=== PATIENT | male | born 1945 | race Caucasian/White ===

== ENCOUNTER 2022-04-18 20:47 | Emergency (ER) | payer MEDICARE, OTHER, SELFPAY ==
[2022-04-18 20:48] VITALS: BP 173/89; PULSE 93; RESP 19; TEMP 36.6; O2SAT 94; BMI 36.8
--- NOTE | 2022-04-18 22:06 | CT_ITS ---
STUDY: CT BRAIN WITHOUT CONTRAST REASON FOR EXAM: Male, 76 years old. Syncope. Fall. Trauma to the head and nose. RADIATION DOSAGE (If Supplied By Facility): CTDIvol = ( 44.99 ) mGy, DLP = ( 829.85 ) mGycm TECHNIQUE: Transaxial CT imaging of the brain was performed without administration of intravenous contrast material. Individualized dose optimization techniques were used for this CT. COMPARISON: No relevant priors. FINDINGS: Normal soft tissue structures. Normal calvarium. 1 Normal white matter tracts of the cerebral hemispheres. Normal basal ganglia and thalami. Normal brainstem. Normal cerebellum. There is no intracranial hemorrhage. There are no findings of an acute ischemic infarction. Normal visualized paranasal sinuses. CT/Brain/Head without Contrast IMPRESSION: No acute intracranial or calvarial abnormality. Electronically Signed: Sammy Houston DO at 22:46 EST ,
--- NOTE | 2022-04-18 22:07 | EKG12_ITS ---
Test Reason : SYNCOPE Blood Pressure : / mmHG Vent. Rate : 094 BPM Atrial Rate : 094 BPM P-R Int : 214 ms QRS Dur : 116 ms QT Int : 364 ms P-R-T Axes : 090 -37 107 degrees QTc Int : 455 ms Sinus rhythm with 1st degree A-V block Left axis deviation Left ventricular hypertrophy with QRS widening ( R in aVL , Dion product ) ST & T wave abnormality, consider lateral ischemia Poor R wave progression Abnormal ECG Confirmed by JHONNY NIELSEN, JESSIE ([id number]), editorial cartoonist DULCE GILBERT ([id number]) on 04/22/2022 11:17:46 AM Referred By: JASON/RAMBO Confirmed By:JESSIE BARRY MD
--- NOTE | 2022-04-18 22:08 | EX.ED.DYSGE1 ---
HPI History of Present Illness Chief Complaint: Syncope Informant: patient Narrative Narrative: Patient had a possible syncopal episode. He was up here visiting from [place]. They drove up from the [place] [facility] [place] [facility]. He did have some pizza and finger foods but nothing that he thought was significantly out of the ordinary. He did not drink any alcohol. He did take his Lasix later in the day than normal because he drove up here. He had to go to the restroom. He evidently passed out in the bathroom. He states he was sitting down when he was urinating. He did not move his bowels. He stated he is not sure if he passed out when he was urinating or when he was getting up to leave. 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 He states he is at risk for falling because of this but he has not passed out before. But he is not sure if he fell getting up hit his head and passed out or if he passed out and then fell and hit his head. There is no one available they can give us these details. He does state that he feels completely normal now. Patient does have complex medical history including diabetes heart disease and prior bypass surgery in 2018. He is taking his medications. This does include 40 mg a day of Lasix. He is on baby aspirin but no other anticoagulation. [facility] Medical History Asbestos exposure Diabetes type 2, controlled Heart failure Hypertension NSTEMI (non-ST elevated myocardial infarction) Sleep apnea Allergy/AdvReac Type Severity Reaction Status Date / Time No Known Allergies Allergy Verified 04/18/22 20:56 Surgical History H/O heart bypass surgery Social History Smoking Status: Former smoker ROS ROS ED Constitutional Constitutional ED: Denies chills, fever(s), subjective or sweats Eyes Eyes: Denies blurry vision, change in vision or diplopia ENT ENT ED: Reports other Details: Facial abrasions Cardiovascular Cardiovascular: Denies chest pain or palpitations Respiratory/Chest Respiratory/Chest: Denies cough or dyspnea Gastrointestinal Gastrointestinal: Denies abdominal pain, nausea or vomiting Genitourinary Genitourinary ED: Denies dysuria or urinary frequency Musculoskeletal Musculoskeletal: Denies arthralgias, back pain, myalgias or neck pain Integumentary Reports Abrasions; Denies rash Neurologic Neurologic: Denies headache(s), paresthesias or weakness Endocrine Endocrinology: Denies polydipsia or polyuria Hematologic/Lymphatic Hematologic/Lymphatic: Denies easy bleeding or easy bruising Allergic/Immunologic Allergic/Immunologic ED: Denies urticaria EXAM Physical Exam Const Vital Signs: 04/18/22 20:48 04/18/22 20:48 Temperature 97.8 F Temperature Source Temporal Pulse Rate 93 Respiratory Rate 19 H Respiratory Effort Normal Respiratory Pattern Normal Blood Pressure 173/89 H Blood Pressure Mean 117 Pulse Ox 94 Oxygen Delivery Method Room Air Positive well nourished and well developed General Appearance ED: well developed and NAD HEENT HEENT Narrative: Patient has a slight tear/shallow laceration proximal left side of his nose. No bleeding. There is 2 abrasions on the left forehead. There is contusion on the right cheek. No apparent dental tenderness. No facial anesthesia. No sign of nasal bleeding or septal hematoma. Eyes Eyes Narrative: There is some bruising of the right lower lid. But the eyes themselves do not look involved. No subconjunctival hemorrhage. No pain with range of motion. No limitation of upward gaze. Neck no lymphadenopathy and supple General: Negative for tenderness Chest Wall inspection of chest normal and palpation of chest normal Chest Narrative: Well-healed sternotomy Resp normal respiratory effort and clear to auscultation bilaterally Cardio regular rate and regular rhythm GI normal to inspection, nondistended, normoactive bowel sounds GI Narrative: No bruit mass or tenderness. Auscultation: normoactive bowel sounds Palpation: soft; Negative for tender, guarding or mass Back/Spine no CVA tenderness Extremity Extremity Narrative: Patient has compression hose on. No deformity or tenderness. Neuro oriented x3 Neuro Narrative: Patient awake alert oriented x3. He told me stories going back to his [employer] days in the late 60s and early 70s. He is a good informant for the dates and times of his surgery. He knows his meds. No sign of confusion whatsoever. No numbness tingling weakness or discoordination. No abnormal speech or vision. Psych mental status grossly normal Skin Skin Narrative: Patient abrasions as above. MDM MDM MDM Narrative Medical decision making narrative: Blood work showed nonspecific elevation of white count at 12.6. He has anemia at 10. He states his level is normally a little lower than this.'s 10 is pretty good for him. He does have some mild elevated creatinine at 1.8. He states they know about this and this is chronic also. Glucose is 229. He states that is probably because he did not take some of his meds for diabetes today because of the events that happened. He also ate a little bit more food than normal. He is still asymptomatic. His states he is acting normally. They would like to go home. I think this is a reasonable option. It is still unclear if this was a syncopal event where he hit his head or if he got unsteady fell hit his head and lost consciousness. We did have recommend he follow-up with his primary physician. We agreed that the small laceration on the left side of his nose is quite small. It is about 1 cm long. It does not open. It does not need closure. Lab Data Attestation: I reviewed the patient's lab results. Labs: Laboratory Results - last 24 hr 04/18/22 04/18/22 20:35 20:35 WBC 12.6 H RBC 3.37 L Hgb 10.0 L Hct 33.6 L MCV 99.7 H MCH 29.7 MCHC 29.8 L RDW Std Deviation 50.4 H RDW Coeff of Bernardo 13.8 Plt Count 356 MPV 10.6 Immature Gran % (Auto) 0.400 Neut % (Auto) 63.6 Lymph % (Auto) 24.1 [place] % (Auto) 8.1 Eos % (Auto) 2.8 Baso % (Auto) 1.0 Absolute Neuts (auto) 8.0 H Absolute Lymphs (auto) 3.03 Nucleated RBC % 0 Sodium 144 Potassium 3.7 Chloride 111 H Carbon Dioxide 23.0 Anion Gap 10 BUN 38 H Creatinine 1.80 H Estim Creat Clear Calc 28.98 Est GFR (MDRD) Af Amer 48 L Est GFR (MDRD) Non-Af 39 L BUN/Creatinine Ratio 21.1 H Glucose 229 H Calcium 9.2 Radiography Diagnostic Testing: Clinical Impression(s) from Imaging Studies Brain CT 04/18/22 22:06 IMPRESSION: No acute intracranial or calvarial abnormality. Electronically Signed: Sammy Houston DO at 22:46 EST Reading Location ID and State: [employer] / [employer] Tel [phone], Service support , Cervical Spine CT 04/18/22 22:09 IMPRESSION: Degenerative changes of the cervical spine without acute fracture or subluxation. Note: MRI is more sensitive than CT in detecting cord injury, ligamentous injury and epidural hematoma. If there is continued clinical concern for any of these entities, MRI should be considered. Electronically Signed: Sammy Houston DO at 22:59 EST Reading Location ID and State: [facility] / [place] Tel [phone], Service support , Facial/Sinus 04/18/22 22:09 IMPRESSION: Normal unenhanced CT of the facial bones. Electronically Signed: Sammy Houston DO at 22:49 EST Reading Location ID and State: [facility] / [employer] Tel [phone], Service support , Chest X-Ray 04/18/22 22:32 IMPRESSION: 1. A probable left pleural effusion and atelectasis. 2. Evidence of prior CABG procedure. Electronically Signed: Sammy Houston DO at 23:00 EST Reading Location ID and State: [facility] / [place] Tel [phone], Service support , Chest x-ray does show a slight left effusion. He has no symptoms this. He states he had a fusion and he thinks he has had 1 ever since his bypass surgery about [address] of the face neck and head showed no acute process. EKG Initial EKG: Comments: EKG done for syncope read by me shows sinus rhythm with first-degree AV block and overall rate of 94. No ventricular ectopy is noted although there is a rare PVC on the monitor. No acute ST elevation or significant depression. AR interval is long. QRS duration is within normal limits and QTc is normal. I do not have prior to compare. Discharge Plan Triage Chief Complaint: Syncope ED Provider: Harish Gunn Dx/Rx/DC Orders Clinical Impression: Syncope, Anemia, Abrasion of face Instructions: ED Dizziness or Syncope ... [facility] Provider: [facility] Referrals: [facility] [Primary Care Provider] - 1 Week Disposition Disposition: Home, Self Care
--- NOTE | 2022-04-18 22:09 | CT_ITS ---
STUDY: CT FACIAL BONES WITHOUT CONTRAST REASON FOR EXAM: Male, 76 years old. Incompletely with fall. Trauma to the head and face. RADIATION DOSAGE (If Supplied By Facility): CTDIvol = ( 29.38 ) mGy, DLP = ( 591.53 ) mGycm TECHNIQUE: The patient was scanned in a multi detector CT scanner. Sagittal and coronal images were reconstructed. Individualized dose optimization techniques were used for this CT. COMPARISON: CT of the head, April 18, 2022. FINDINGS: Normal soft tissue structures. Normal orbital galdamez and orbital contents. Normal nasal bones and anterior nasal spine. Normal facial bones. There is no demonstrated fracture. Normal visualized paranasal sinuses. CT/Sinus/Facial Bone IMPRESSION: Normal unenhanced CT of the facial bones. Electronically Signed: Sammy Houston DO at 22:49 EST ,
--- NOTE | 2022-04-18 22:09 | CT_ITS ---
STUDY: CT CERVICAL SPINE WITHOUT CONTRAST REASON FOR EXAM: Male, 76 years old. Fall. Trauma to the head and face. RADIATION DOSAGE (If Supplied By Facility): CTDIvol = ( 22.42 ) mGy, DLP = ( 469.02 ) mGycm TECHNIQUE: High resolution transaxial imaging was performed without contrast material. Sagittal and coronal images were reconstructed. Individualized dose optimization techniques were used for this CT. COMPARISON: None FINDINGS: Normal craniovertebral junction. There are degenerative changes of the anterior atlantoaxial articulation. Normal odontoid process. Normal cervical lordosis. Normal vertebral bodies and posterior osseous elements. C2-3: Minimal endplate spondylosis with slight loss of disc height. Facet joint degenerative change.. Normal central canal and intervertebral neuroforamina. C3-4: Endplate spondylosis. Loss of disc height with mild bulging annulus. Facet and uncovertebral joint degenerative change. Mild stenosis of central canal and narrowing of the bilateral intervertebral neuroforamina. C4-5: Endplate spondylosis. Loss of disc height with bulging annulus. Facet and uncovertebral joint degenerative change. Normal central canal. Narrowing of the bilateral intervertebral neuroforamina. C5-6: Endplate spondylosis. Loss of disc height with bulging annulus. Facet and uncovertebral joint degenerative change. Marked stenosis of the central canal and severe narrowing of the bilateral intervertebral neuroforamina. C6-7: Endplate spondylosis. Loss of disc height with bulging annulus. Facet and uncovertebral joint degenerative change. Marked stenosis of the central canal and severe narrowing of the bilateral intervertebral neuroforamina. C7-T1: Endplate spondylosis. Loss of disc height with bulging annulus. Facet and uncovertebral joint degenerative change. Marked stenosis of the central canal and severe narrowing of the bilateral intervertebral neuroforamina. Normal visualized soft tissue structures. CT/Spine Cervical without Contras IMPRESSION: Degenerative changes of the cervical spine without acute fracture or subluxation. Note: MRI is more sensitive than CT in detecting cord injury, ligamentous injury and epidural hematoma. If there is continued clinical concern for any of these entities, MRI should be considered. Electronically Signed: Sammy Houston DO at 22:59 EST Reading Location ID and State: [facility] / [place] Tel [phone], Service support ,
[2022-04-18 22:26] LABS: Absolute Lymphocyte Count 3.03 X10^3/uL (0.83-4.51); Basophil# 0.12 X10^3/uL; Eosinophil# 0.35 X10^3/uL; Eosinophils% 2.8 % (0-5); Hematocrit 33.6 % (40-54); Lymphocyte # 3.03 X10^3/ul (0.83-4.51); Lymphocyte % 24.1 % (19-41); Mean Corp Hgb Conc 29.8 g/dL (32-36); Mean Corpuscular Hgb 29.7 pg (27.0-32.0); Mean Corpuscular Volume 99.7 fL (80-94); Mean Platelet Vol. 10.6 fl (6.2-12.0); Monocyte# 1.02 X10^3/uL; Monocyte% 8.1 % (0-10); NRBC Flagged by Analyzer 0 % (0-5); Neutrophil % 63.6 % (47-70); Platelet Count 356 K/mm3 (150-450); RBC Distribution Width CV 13.8 % (11.6-14.6); RBC Distribution Width SD 50.4 fl (35.1-43.9); Red Blood Count 3.37 M/mm3 (4.6-6.2); White Blood Count 12.6 K/mm3 (4.4-11.0)
--- NOTE | 2022-04-18 22:32 | RAD_ITS ---
STUDY: X-RAY CHEST REASON FOR EXAM: Male, 76 years old. CHF. Patient passed out rest room and was unconscious for 5 minutes. Small laceration to the nose and 4. TECHNIQUE: Single AP portable view of the chest. COMPARISON: None. FINDINGS: There is increased density at the left lung base suggesting pleural effusion and atelectasis. The lungs are otherwise clear. There is minimal scarring in the left upper lobe. Sternal cerclage wires and vascular clips are present from a prior sternotomy and coronary artery bypass graft procedure (CABG). The heart appears normal in size of the left heart margin is obscured by the left pleural effusion. Normal mediastinum and steph. Normal visualized pulmonary arteries. There is atherosclerotic calcification of the aortic arch with tortuosity. The thoracic spine is obscured by the mediastinum. Normal visualized ribs, clavicles, and shoulders. There is no demonstrated abnormality of the visualized soft tissue structures of the upper abdomen. RAD/Chest 1 View (Portable) IMPRESSION: 1. A probable left pleural effusion and atelectasis. 2. Evidence of prior CABG procedure. Electronically Signed: Sammy Houston DO at 23:00 EST Reading Location ID and State: [address] [place] [address] Tel [phone], Service support ,
[2022-04-18 22:48] VITALS: BP 174/75; PULSE 89; RESP 23; O2SAT 94
[2022-04-18 22:54] LABS: Anion Gap 10 (5-15); BUN 38 mg/dL (7-18); BUN/Creat Ratio 21.1 RATIO (10-20); Calcium,Total 9.2 mg/dL (8.5-10.1); Chloride 111 mmol/L (98-107); EST Glomerular Filtration Rate 39 mL/min (>60); Est Glom Filt Rate - Afr Amer 48 mL/min (>60); Estimated Creatinine Clearance 28.98 ml/min; Glucose 229 mg/dL (74-106); Potassium 3.7 mmol/L (3.5-5.1); Sodium Level 144 mmol/L (136-145)
[2022-04-18 23:59] VITALS: BP 179/90; PULSE 79; RESP 23; O2SAT 96
== END 2022-04-19 00:12 | disposition home or self-care (01) ==
PROVIDERS: Emergency Provider Emergency Medicine; Visit Provider Emergency Medicine
DX: R55 Syncope and collapse (principal); I11.0 Hypertensive heart disease with heart failure; I50.9 Heart failure, unspecified; E11.9 Type 2 diabetes mellitus without complications; S01.21XA Laceration without foreign body of nose, initial encounter; D64.9 Anemia, unspecified; Z87.891 Personal history of nicotine dependence; W19.XXXA Unspecified fall, initial encounter
CPT/HCPCS: 70450; 70486; 71045; 72125; 80048; 85025; 93005; 99285